=== PATIENT | male | born 1925 | race Caucasian/White ===

== ENCOUNTER 2017-06-29 03:39 | Emergency (ER) | payer OTHER ==
[~2017-06-29] VITALS: Ht 167.6 cm; Wt 68.0 kg
[2017-06-29 05:12] LABS: CALCIUM 8.5 mg/dL (8.5-10.1); CARBON DIOXIDE 28.5 mmol/L (21-32); CHLORIDE SERUM 104 mmol/L (98-107); CREATININE SERUM 0.9 mg/dL (0.7-1.3); GLUCOSE SERUM 107 mg/dL (74-106); SODIUM SERUM 141 mmol/L (136-145)
[2017-06-29 05:14] LABS: PLATELET COUNT 182 x10^3mcL (130-400); RED CELL DISTRIBUTION WIDTH 14.4 % (11.5-14.5)
[2017-06-29 05:34] LABS: BASOPHIL % 0 % (0-2)
[2017-06-29 07:13] VITALS: BP 138/70
== END 2017-06-29 07:05 | disposition left against medical advice (07) ==
LOC: ED 03:39
PROVIDERS: Emergency Medicine
DX: S35.09XA Other injury of abdominal aorta, initial encounter (principal); W18.30XA Fall on same level, unspecified, initial encounter; Y93.89 Activity, other specified; Y92.89 Other specified places as the place of occurrence of the external cause; Y99.8 Other external cause status
CPT/HCPCS: J1885; J2270